=== PATIENT | male | born 1960 | race Caucasian/White ===

== ENCOUNTER 2024-06-07 06:49 | Day surgery (SDC) | payer BC, SELFPAY ==
[2024-05-17 11:25] LABS: Hematocrit 45.5 % (39.0-52.0); Hemoglobin 15.1 g/dL (13.0-18.0); Mean Corp Hgb Conc. 33.2 g/dL (33.0-37.0); Mean Corpuscular Hgb 31.7 pg (27.0-31.0); Mean Corpuscular Volume 95.4 fL (80.0-94.0); Mean Platelet Volume 10.2 fL (7.4-10.4); Platelet Count 176 10^3/uL (130-400); Red Blood Cell Count 4.77 10^6/uL (4.70-6.10); Red Cell Dist. Width 11.7 % (11.5-14.5); White Blood Cell Count 6.8 10^3/uL (4.8-10.8)
[2024-05-17 11:57] LABS: Blood Urea Nitrogen 11 mg/dl (9-20); Calcium 8.8 mg/dl (8.4-10.2); Carbon Dioxide 28 mmol/L (22-30); Chloride 105 mmol/L (98-107); Glucose 86 mg/dl (70-99); Potassium 4.2 mmol/L (3.5-5.1); Sodium 139 mmol/L (135-145); eGFR > 60.00
[2024-05-17 12:37] VITALS: BMI 28.6
[2024-06-07] VITALS (8 sets, daily range): BP systolic 97–123; BP diastolic 58–74; BMI 28.6
--- NOTE | 2024-06-07 07:08 | HP.FOC2 ---
Focused History & Physical
Chief Complaint
HPI:
Chief Complaint: Bilateral inguinal hernias
HPI / Indication for Planned Procedure: 64-year-old male with a few year history of inguinal swelling left side greater than right. Awareness of the hernias being present. No significant pain. Occasional mild constipation exacerbated by left
inguinal hernia. No symptoms suggestive of intermittent obstruction or strangulation. Remote history of inguinal herniorrhaphy in the .
Relevant Past Medical History: Other (CAD with history of PA, cardiomyopathy, A-fib, hyperlipidemia)
Relevant Social History: Negative
Relevant Family History: Negative
Relevant Past Surgical History: Positive for (Cardiac catheterization, [facility], lap inguinal hernia repair at [facility])
Review of Systems
Review of Pertinent Systems: All Systems Negative
Medication
See Medication form for detailed medications: Yes
Medication List (including Herbals & OTC):
aspirin 81 mg chewable tablet 81 mg PO DAILY #1 tab 01/24/17
atorvastatin 80 mg tablet 80 mg PO QPM #30 tabs 01/24/17
clopidogrel 75 mg tablet 75 mg PO DAILY #30 tabs 01/24/17
lisinopril 2.5 mg tablet 2.5 mg PO DAILY #30 tabs 01/24/17
metoprolol succinate 25 mg tablet,extended release 24 hr 25 mg PO DAILY 01/24/17
pantoprazole 40 mg tablet,delayed release 40 mg PO DAILY #30 tabs 01/24/17
Medications Reviewed: Yes
Allergies and Reactions
Patient has Allergies: No
Noted Allergies and Reactions:
Allergy/AdvReac Type Severity Reaction Status Date / Time
No Known Allergies Allergy Verified 05/31/24 10:39
Pertinent Physical Exam
All Other Systems: Negative
Head/Neck: Normal
Lungs: Normal
Heart: Normal
Abdomen: Other (Bilateral inguinal hernias, left larger than right)
Extremities: Normal
Neurological: Normal
Diagnosis / Assessment
64-year-old male presenting for scheduled operative correction bilateral inguinal hernias, one side recurrent (uncertain right or left)
Plan / Procedure
Robotic assisted laparoscopic repair bilateral inguinal hernias with mesh
Anesthesia/Sedation to be done by Anesthesia Provider: Yes
[2024-06-07] MEDS: NORMOSOL-R/PLASMALYTE-A 1000 IV (07:20)
[2024-06-07] MEDS: TYLENOL 1000 MG PO (07:20)
--- NOTE | 2024-06-07 08:23 | W.SUR.PREOP ---
Pre-Operative Surgical Note
-
I have examined this patient prior to the performance of the scheduled procedure.
The patient's condition is unchanged from the time of the current History and
Physical and the patient is able to undergo the scheduled procedure.
--- NOTE | 2024-06-07 11:33 | W.IMMPOSTOP ---
Addendum entered and electronically signed by Sudhir Membreno MD 06/09/24 15:08:
#[id number]
Original Note:
Surgical Immed Post Op Note
-
Primary Surgeon: Sudhir Membreno MD
Assisting Surgeon: Amanda Salazar PA-C
Pre-op Diagnosis: Bilateral inguinal hernias
Post-op Diagnosis: Initial left inguinal hernia -direct and smaller indirect component
Recurrent right inguinal hernia -direct
Procedure Performed: Robotic assisted laparoscopic NADIA repair bilateral inguinal hernias with mesh; 3D max large mid weight x 2
Anesthesia Type: GETA +0.25% Marcaine with epi
Specimen / Cultures: None
Estimated Blood Loss: 8 mL
Complications: None immediate
Operative Findings: Left direct inguinal hernia, small indirect component and small lipoma of cord structures reduced and excised to facilitate mesh placement. 3D max large mid weight mesh repair. Plication of pseudosac with 2-0 PDS suture. Mesh
secured to Thanh's ligament with interrupted 2-0 Vicryl x 3. Recurrent right direct inguinal hernia. Incorporated polypropylene mesh overlying indirect area. Hernia recurrence inferior and medial to previously placed mesh. Did not disturb
previous mesh. 3D max large mid weight mesh repair secured to Thanh's ligament with interrupted 2-0 Vicryl x 3. Plication of pseudosac with 2-0 PDS suture. Peritoneal flap closed with 2-0 Monocryl STRATAFIX spiral.
The assistance of Amanda Saalzar PA-C was required due to the complexity of the procedure. During the procedure Amanda Salazar PA-C assisted with port placement, robotic instrumentation and suture material exchanges, and closure of the surgical incision
sites. I was present for the entirety of the operative procedure.
== END 2024-06-07 13:34 | disposition home or self-care (01) ==
LOC: SDS 06:49
PROVIDERS: ATTENDING PHYSICIAN Surgery; FAMILY PHYSICIAN Family Medicine
DX: K40.91 Unilateral inguinal hernia, without obstruction or gangrene, recurrent (principal); K40.90 Unilateral inguinal hernia, without obstruction or gangrene, not specified as recurrent; D17.6 Benign lipomatous neoplasm of spermatic cord
CPT/HCPCS: 49651; 49650; 80048; 85027; C1781